=== PATIENT | male | born 1970 | race Caucasian/White ===

== ENCOUNTER 2018-06-05 06:11 | Emergency (ER) | payer OTHER | END 2018-06-05 07:15 | disposition home or self-care (01) | LOC: E/R 06:11 | DX: F41.1 Generalized anxiety disorder (principal); F10.10 Alcohol abuse, uncomplicated; R40.2142 Coma scale, eyes open, spontaneous, at arrival to emergency department; R40.2252 Coma scale, best verbal response, oriented, at arrival to emergency department; R40.2362 Coma scale, best motor response, obeys commands, at arrival to emergency department | CPT/HCPCS: 99283 ==

== ENCOUNTER 2019-02-22 15:05 | Emergency (ER) | payer SELFPAY, OTHER | END 2019-02-22 16:15 | disposition home or self-care (01) | LOC: FTE 15:05 | DX: R04.0 Epistaxis (principal) | CPT/HCPCS: 99282 ==